=== PATIENT | female | born 1945 | race Caucasian/White ===

== ENCOUNTER 2022-03-10 15:32 | Emergency (ER) | payer MEDICARE, OTHER ==
[~2022-03-10 15:32] MED LIST: AMLODIPINE-BEN1 EAC1 PO; ASPIRIN EC81 MG PO; AUGMENTIN 875-1 EACH PO; BYSTOLIC5 MG PO; CALCIUM 600 +1 EAC2 PO; CENTRUM SILVER1 EAC4 PO; CEPHALEXIN500 M1 PO; COUMADIN6 MG PO; CYMBALTA60 MG PO; FORTAMET500 MG PO; GABAPENTIN100 MG PO; K-DUR20 MEQ PO; LASIX20 MG PO; LIPITOR40 MG PO; SINGULAIR10 MG PO; VENTOLIN HFA IN18 GM INH; XALATAN2.5 ML EYEBOTH
[2022-03-10 16:48] LABS: BASOPHIL 0.6 % (0-2); EOSINOPHIL 0.7 % (0-7); HCT 39.1 % (37.0-47.0); HGB 13.1 g/dl (12.5-16.0); LYMPHOCYTE 13.6 % (15-48); MCH 32.8 pg (25.0-31.0); MCHC 33.5 g/dL (32.0-36.0); MCV 97.8 fL (78.0-100.0); MONOCYTE 8.3 % (0-12); MPV 8.4 fL (6.0-9.5); NEUTROPHIL 74.5 % (41-80); NRBC 0; PLT 438 K/uL (150-400); RDW 14.3 % (11.5-14.0); WBC 13.8 K/uL (4.0-10.5)
[2022-03-10 17:14] LABS: ALBUMIN 3.3 g/dL (3.4-5.0); BILIRUBIN - TOTAL 0.3 mg/dL (0.2-1.0); BUN/CREAT RATIO (CALC) 25.5 RATIO; CREATININE 0.98 mg/dL (0.51-0.95); GLOBULIN (CALCULATION) 3.7 g/dL; POTASSIUM 4.5 mmol/L (3.5-5.1)
== END 2022-03-10 18:42 | disposition home or self-care (01) ==
LOC: FER 15:32
PROVIDERS: Emergency Medicine
DX: S00.33XA Contusion of nose, initial encounter (principal); I10 Essential (primary) hypertension; E11.9 Type 2 diabetes mellitus without complications; J44.9 Chronic obstructive pulmonary disease, unspecified; Z91.041 Radiographic dye allergy status; W18.30XA Fall on same level, unspecified, initial encounter; Y92.009 Unspecified place in unspecified non-institutional (private) residence as the place of occurrence of the external cause
CPT/HCPCS: 36415; 70450; 70486; 71046; 72125; 80053; 82553; 84484; 85025; 93005

== ENCOUNTER 2022-04-25 19:49 | Day surgery (SDCO) | payer MEDICARE, OTHER ==
[~2022-04-25] VITALS: Ht 162.6 cm; Wt 96.6 kg
[2022-04-25 21:01] LABS: INR 1.1 (0.9-1.2); PROTHROMBIN TIME 13.6 SECONDS (11.8-13.4)
[2022-04-25 21:05] LABS: BASOPHIL 0.8 % (0-2); EOSINOPHIL 0.7 % (0-7); HCT 34.8 % (37.0-47.0); HGB 12.1 g/dl (12.5-16.0); LYMPHOCYTE 10.1 % (15-48); MCH 32.3 pg (25.0-31.0); MCHC 34.8 g/dL (32.0-36.0); MCV 92.8 fL (78.0-100.0); MONOCYTE 8.9 % (0-12); MPV 8.3 fL (6.0-9.5); NEUTROPHIL 77.3 % (41-80); NRBC 0; PLT 402 K/uL (150-400); RBC 3.75 M/uL (4.20-5.40); RDW 13.4 % (11.5-14.0)
[2022-04-25 21:12] LABS: ALBUMIN 3.5 g/dL (3.4-5.0); BILIRUBIN - TOTAL 0.6 mg/dL (0.2-1.0); BUN/CREAT RATIO (CALC) 19.4 RATIO; CREATININE 1.03 mg/dL (0.51-0.95); GLOBULIN (CALCULATION) 3.9 g/dL; POTASSIUM 3.9 mmol/L (3.5-5.1); TOTAL PROTEIN 7.4 g/dL (6.4-8.2)
[2022-04-26 03:19] LABS: BASOPHIL 0.6 % (0-2); EOSINOPHIL 0.6 % (0-7); HCT 32.6 % (37.0-47.0); HGB 11.4 g/dl (12.5-16.0); LYMPHOCYTE 9.2 % (15-48); MCH 32.4 pg (25.0-31.0); MCV 92.6 fL (78.0-100.0); MONOCYTE 7.9 % (0-12); MPV 8.3 fL (6.0-9.5); NEUTROPHIL 78.6 % (41-80); NRBC 0; PLT 361 K/uL (150-400); RBC 3.52 M/uL (4.20-5.40); RDW 13.3 % (11.5-14.0); RETICULOCYTE COUNT 1.9 % (1.0-2.0); WBC 12.4 K/uL (4.0-10.5)
[2022-04-26 03:40] LABS: IRON % SATURATION 15.7 %SAT (20-50)
[2022-04-26 03:41] LABS: BUN/CREAT RATIO (CALC) 19.6 RATIO; CREATININE 1.07 mg/dL (0.51-0.95); MAGNESIUM 1.6 mg/dL (1.8-2.4); POTASSIUM 4.2 mmol/L (3.5-5.1)
[2022-04-26 04:45] LABS: BILIRUBIN NEGATIVE (NEGATIVE); BLOOD NEGATIVE Ery/uL (NEGATIVE); CLARITY CLEAR (CLEAR); COLOR YELLOW (YELLOW); GLUCOSE (U) NORMAL (NORMAL); LEUKOCYTES NEGATIVE Leu/uL (NEGATIVE); NITRITE NEGATIVE (NEGATIVE); PROTEIN NEGATIVE (NEGATIVE); UROBILINOGEN 0.2 mg/dL (0.2-1.0)
[2022-04-26 10:10] LABS: BUN/CREAT RATIO (CALC) 17.6 RATIO; CREATININE 1.02 mg/dL (0.51-0.95); POTASSIUM 4.7 mmol/L (3.5-5.1)
[2022-04-26] MEDS ORDERED: ACETAMINOPHEN500 M1 PO (14:45)
[2022-04-26] MEDS ORDERED: ELIQUIS2.5 MG PO (14:46)
[2022-04-26] MEDS ORDERED: PROAIR HFA8.5 GM PO (14:47)
[2022-04-26] MEDS ORDERED: SYSTANE 0.3-0.415 ML TOP (14:48)
[2022-04-26] MEDS ORDERED: VITAMIN D325 MC4 PO (14:49)
[2022-04-26] MEDS ORDERED: ASPERCREME LIDO73 ML TOP (14:50)
[2022-04-26] MEDS ORDERED: ASCORBIC ACID500 MG PO (14:51)
[2022-04-26] MEDS ORDERED: ZINC50 M3 PO (14:51)
[2022-04-26] MEDS ORDERED: GLUCOTROL XL5 MG PO (14:52)
[2022-04-26 15:19] LABS: CREATININE 1.06 mg/dL (0.51-0.95); POTASSIUM 4.8 mmol/L (3.5-5.1)
[2022-04-26] MEDS ORDERED: GLUCOTROL5 MG PO (15:51)
[2022-04-26 21:42] LABS: BUN/CREAT RATIO (CALC) 14.9 RATIO; CREATININE 1.14 mg/dL (0.51-0.95); POTASSIUM 4.8 mmol/L (3.5-5.1)
[2022-04-27 06:16] LABS: BASOPHIL 1.1 % (0-2); EOSINOPHIL 1.4 % (0-7); HCT 34.7 % (37.0-47.0); HGB 11.8 g/dl (12.5-16.0); LYMPHOCYTE 15.3 % (15-48); MCH 31.8 pg (25.0-31.0); MCV 93.5 fL (78.0-100.0); MONOCYTE 10.4 % (0-12); MPV 9.2 fL (6.0-9.5); NEUTROPHIL 69.9 % (41-80); NRBC 0; PLT 352 K/uL (150-400); RBC 3.71 M/uL (4.20-5.40); RDW 13.6 % (11.5-14.0); WBC 10.8 K/uL (4.0-10.5)
[2022-04-27 06:50] LABS: INR 1.06 (0.9-1.2); PROTHROMBIN TIME 13.2 SECONDS (11.8-13.4)
[2022-04-27 07:35] LABS: BUN/CREAT RATIO (CALC) 15.8 RATIO; CREATININE 0.95 mg/dL (0.51-0.95); POTASSIUM 4.7 mmol/L (3.5-5.1)
--- NOTE | 2022-04-27 14:05 | NUR ---
04/27/22 Ms. Lui lives alone. She has a rollator, 3in1, s. chair and emergency alert system. She reports that homemaking has been difficult. She was educated to [facility]. - A referral was made to [facility] for PT and nursing per patient choice.
== END 2022-04-27 16:10 | disposition home or self-care (01) ==
LOC: FER 19:49 → FMS 22:47
PROVIDERS: Allergy & Immunology Allergy; Emergency Medicine; Nurse Practitioner Acute Care; ADMIT Internal Medicine
DX: E87.1 Hypo-osmolality and hyponatremia (principal); I48.91 Unspecified atrial fibrillation; L89.629 Pressure ulcer of left heel, unspecified stage; L89.610 Pressure ulcer of right heel, unstageable; S51.812A Laceration without foreign body of left forearm, initial encounter; S51.811A Laceration without foreign body of right forearm, initial encounter; Z91.81 History of falling; E11.40 Type 2 diabetes mellitus with diabetic neuropathy, unspecified; I11.0 Hypertensive heart disease with heart failure; I50.9 Heart failure, unspecified; I25.10 Atherosclerotic heart disease of native coronary artery without angina pectoris; I69.311 Memory deficit following cerebral infarction; J44.9 Chronic obstructive pulmonary disease, unspecified; K21.9 Gastro-esophageal reflux disease without esophagitis; M19.90 Unspecified osteoarthritis, unspecified site; G89.29 Other chronic pain; M54.50 Low back pain, unspecified; M25.519 Pain in unspecified shoulder; M25.562 Pain in left knee; M25.561 Pain in right knee; Z79.01 Long term (current) use of anticoagulants; Z79.84 Long term (current) use of oral hypoglycemic drugs; Z79.899 Other long term (current) drug therapy; Z88.8 Allergy status to other drugs, medicaments and biological substances; Z91.012 Allergy to eggs; Z91.013 Allergy to seafood; Z82.49 Family history of ischemic heart disease and other diseases of the circulatory system; X58.XXXA Exposure to other specified factors, initial encounter
CPT/HCPCS: 36415; 70450; 70486; 71045; 72125; 73090; 73560; 80048; 80053; 81003; 82550; 83540; 83550; 83735; 83935; 84145; 84300; 84484; 85025; 85610; 90715; 93005; 94010; 97162; 97166; G0378; J0696; J7030; J7120